=== PATIENT | female | born 1995 | race Hispanic/Latino ===

== ENCOUNTER 2024-02-08 14:48 | Inpatient (IN) | payer MEDICAID, OTHER ==
[2024-02-08] MEDS ORDERED: hydrALAZINE 20 MG/ML VIAL SLOW IVP PRN ×3 (15:24→22:18)
[2024-02-08 15:59] LABS: #Basophils 0.01 10x3/uL (0.0-0.2); #Eosinphils 0.01 10x3/uL (0.0-0.5); #Monocytes 0.63 10x3/uL (0.0-1.1); #Neutrophils 9.08 10x3/uL (1.5-8.4); %Basophils 0.1 % (0.0-2.0); %Eosinophils 0.1 % (0.0-6.0); %Lymphocytes 11.5 % (18.0-47.0); %Monocytes 5.7 % (0.0-10.0); %Neutrophils 82.1 % (40.0-75.0); Hematocrit 26.3 % (34.9-44.5); Hemoglobin 9.2 g/dL (12.0-15.5); Mean Corpuscular Hemoglobin 29.8 pg (27.0-33.0); Mean Corpuscular Volume 85.1 fL (81.6-98.3); Mean Platelet Volume 9.7 fL (7.4-10.4); Platelet Count 314 10x3/uL (150-450); RBC Distribution Width 12.7 % (11.5-14.5); Red Blood Cell (RBC) Count 3.09 10x6/uL (3.90-5.03); White Blood Cell (WBC) Count 11.1 10x3/uL (3.5-10.5)
[2024-02-08 16:17] LABS: ALT (SGPT) Less than 7 U/L (8-55); AST (SGOT) 14 U/L (5-34); Albumin 2.7 g/dL (3.5-5.0); Alkaline Phosphatase 163 U/L (40-110); Anion Gap 12 mmol/L (10-20); BUN (Urea Nitrogen) 9 mg/dL (7.0-18.7); Bilirubin, Total 0.3 mg/dL (0.2-1.2); Calc. Creatinine Clearance 0 mL/min (70-130); Carbon Dioxide 21 mmol/L (22-29); Chloride 106 mmol/L (98-107); Estimated GFR 124; Globulin 3.7 g/dL (2.4-3.5); Glucose 96 mg/dL (70-105); Potassium 4.2 mmol/L (3.5-5.1); Protein, Total 6.4 g/dL (6.0-8.3); Sodium 135 mmol/L (136-145)
[2024-02-08] MEDS ORDERED: Lactated Ringer's 1,000 ML IV SCH (16:30)
[2024-02-08] MEDS: fentaNYL 50 mcg/mL 1 mL Vial SLOW IVP ONE (16:30)
[2024-02-08 17:05] VITALS: BMI 19.1
[2024-02-08] MEDS: Terbutaline Sulfate 1 MG/ML VIAL ONE (17:40)
[2024-02-08] MEDS ORDERED: fentaNYL 50 mcg/mL 1 mL Vial SLOW IVP PRN ×2 (18:20→20:29)
[2024-02-08] MEDS ORDERED: Tranexamic Acid 1,000 MG/10 ML VIAL IVP PRN (18:20)
[2024-02-08] MEDS ORDERED: Misoprostol 200 MCG TAB PR PRN (18:20)
[2024-02-08] MEDS ORDERED: Methylergonovine 0.2 MG/ML VIAL IM PRN (18:20)
[2024-02-08] MEDS ORDERED: Acetaminophen 500 MG TAB PO PRN (18:20)
[2024-02-08] MEDS ORDERED: Ondansetron PF 4 MG/2 ML Vial IVP PRN ×4 (18:20→22:18)
[2024-02-08] MEDS ORDERED: Diphenoxylate HCl/Atropine Tablet PO PRN (18:20)
[2024-02-08] MEDS ORDERED: Carboprost 250 MCG/ML AMP IM PRN (18:20)
[2024-02-08] MEDS ORDERED: Oxytocin 30 units/NS 500 ML 500 ML IV SCH ×2 (18:30→22:18)
[2024-02-08] MEDS ORDERED: Terbutaline Sulfate 1 MG/ML VIAL SC SCH (18:30)
[2024-02-08] MEDS: Betamet Acet/Betamet Na Ph 30 MG/5 ML VIAL IM SCH (18:45)
[2024-02-08 18:59] LABS: Syphilis Antibody Nonreactive (Nonreactive); Syphilis Antibody Index 0.05 S/CO (<1.00 Non-Reactive)
[2024-02-08 19:01] LABS: HBsAg Index 0.19 S/CO (0-0.99); Hep B Surf Ag - L&D Non-Reactive S/CO (NonReactive)
[2024-02-08] MEDS ORDERED: Famotidine/PF 20 mg/2ml Vial SLOW IVP PRN (19:09)
[2024-02-08] MEDS ORDERED: Bicitra 30 ML UDCUP PO PRN (19:09)
[2024-02-08] MEDS: Lactated Ringer's 1,000 ML IV SCH (19:22)
[2024-02-08] MEDS: CEFAZOLIN 2 GM in Sodium Chloride 0.9% 100 ML IVPB SCH (19:22)
[2024-02-08 19:23] LABS: Bilirubin Neg (Negative); Blood, Urine 50 (Negative); Clarity Clear (Clear); Glucose, Urine (Dipstick) 50 mg/dL (Negative); Ketone, Urine 150 mg/dL (Negative); Leukocyte 25 (Negative); Nitrite Negative (Negative); Protein, Urine (Dipstick) Negative (Neg-Trace); Urobilinogen Normal mg/dL (Less than 2)
[2024-02-08 19:32] LABS: Bacteria/HPF 1+ HPF (None Seen); CAUTI Indications for Culture Pregnancy; RBC/HPF 0-3 HPF (0-3); Squamous Epithelial 0-3 HPF (0-3)
[2024-02-08 19:35] LABS: Urine Culture Reflex Yes Yes
[2024-02-08] MEDS ORDERED: Ketorolac Tromethamine 30 MG (1 mL) VIAL IVP PRN (20:29)
[2024-02-08] MEDS ORDERED: Meperidine HCl/PF 25 MG (1 mL) VIAL SLOW IVP PRN (20:29)
[2024-02-08] MEDS ORDERED: Promethazine HCl 25 MG/ML VIAL IM PRN ×2 (20:29→22:18)
[2024-02-08] MEDS ORDERED: Naloxone HCl 0.4 mg/ml Vial IV PRN (20:29)
[2024-02-08] MEDS ORDERED: Moisturizing Cream (Eucerin) 113 GM JAR TOP PRN (20:29)
[2024-02-08] MEDS ORDERED: Morphine 4 MG/ML VIAL SLOW IVP PRN (20:29)
[2024-02-08] MEDS ORDERED: Naloxone HCl 0.4 mg/ml Vial IVP PRN (20:29)
[2024-02-08] MEDS ORDERED: Ketorolac Tromethamine 30 MG (1 mL) VIAL IVP SCH (20:30)
[2024-02-08] MEDS ORDERED: Communication Order-Pharmacy FS SCH (20:30)
[2024-02-08] MEDS: Oxytocin 10 UNITS/ML VIAL ONE (21:05)
[2024-02-08] MEDS: PHENYLEPHRINE-NS 100 MCG/ML 10 ML SYRINGE ONE (21:05)
[2024-02-08] MEDS: Ondansetron PF 4 MG/2 ML Vial ONE (21:05)
[2024-02-08] MEDS: Morphine PF 10 MG/10 ML VIAL ONE (21:05)
[2024-02-08] MEDS: Dexamethasone 4 mg/ml Vial ONE (21:05)
[2024-02-08] MEDS: Ketorolac Tromethamine 30 MG (1 mL) VIAL IVP SCH (22:00)
[2024-02-08] MEDS ORDERED: Bisacodyl 10 MG SUPP PR PRN (22:18)
[2024-02-08] MEDS ORDERED: Lanolin Ointment 7 GM TUBE TOP PRN (22:18)
[2024-02-08 23:04] LABS: Influenza A by NAA Not Detected (NotDetected); Influenza B by NAA Not Detected (NotDetected); RSV by NAA Not Detected (NotDetected); SARS-CoV-2 NAA Rapid Test Not Detected (NotDetected)
[2024-02-09 03:22] LABS: Hematocrit 29.4 % (34.9-44.5); Hemoglobin 10.1 g/dL (12.0-15.5); Mean Corpuscular HGB CONC 34.4 g/dL (32.0-36.0); Mean Corpuscular Hemoglobin 29.1 pg (27.0-33.0); Mean Corpuscular Volume 84.7 fL (81.6-98.3); Mean Platelet Volume 9.5 fL (7.4-10.4); Platelet Count 286 10x3/uL (150-450); RBC Distribution Width 12.7 % (11.5-14.5); Red Blood Cell (RBC) Count 3.47 10x6/uL (3.90-5.03); White Blood Cell (WBC) Count 17.7 10x3/uL (3.5-10.5)
[2024-02-09] MEDS: Docusate 100 MG CAP PO SCH ×2 (03:23→08:43)
[2024-02-09] MEDS: Ferrous Sulfate 325 MG TAB PO SCH ×2 (03:23→10:25)
[2024-02-09] MEDS: Ketorolac Tromethamine 30 MG (1 mL) VIAL IVP SCH (04:04)
[2024-02-09] MEDS: diphenhydrAMINE 50 MG/ML VIAL IVP PRN (06:11)
[2024-02-09] MEDS ORDERED: fentaNYL 50 mcg/mL 1 mL Vial SLOW IVP PRN (08:30)
[2024-02-09] MEDS: Naloxone HCl 0.4 mg/ml Vial IVP PRN (08:42)
[2024-02-09] MEDS: Prenatal Vitamin 1 TAB PO SCH (08:43)
[2024-02-09] MEDS: HYDROcodone/Acetaminophen 5/325 mg Tablet PO PRN (18:24)
[2024-02-09] MEDS: diphenhydrAMINE 25 MG CAP PO PRN (18:25)
[2024-02-09] MEDS: Simethicone Chewable 80 MG TAB PO PRN (19:49)
[2024-02-09] MEDS: Ibuprofen 800 MG TAB PO SCH (21:10)
[2024-02-10] MEDS: HYDROcodone/Acetaminophen 5/325 mg Tablet PO PRN (09:04)
[2024-02-11 07:42] VITALS: BP 90/52; TEMP 97.8
[2024-02-11] MEDS: Boostrix 0.5 ML (Tdap) VIAL (>/=7 yrs of age) IM ONE (07:56)
== END 2024-02-11 16:40 | disposition home or self-care (01) | DRG 786 ==
LOC: CSHLD/OP 14:48 → CSHLD 18:20 → OBSVTOIN 19:25 → CSHPP 22:40
PROVIDERS: ADMIT Family Medicine; ATTEND Family Medicine
PROC: 10D00Z1 Extraction of Products of Conception, Low, Open Approach (ICD-10-PCS; principal; 2024-02-08)
DX: O24.420 Gestational diabetes mellitus in childbirth, diet controlled (principal); O60.14X0 Preterm labor third trimester with preterm delivery third trimester, not applicable or unspecified; O75.2 Pyrexia during labor, not elsewhere classified; Z3A.35 35 weeks gestation of pregnancy; Z37.0 Single live birth; O34.211 Maternal care for low transverse scar from previous cesarean delivery; Z79.899 Other long term (current) drug therapy; O76 Abnormality in fetal heart rate and rhythm complicating labor and delivery
CPT/HCPCS: 0241U; 36415; 51702; 76819; 80053; 81001; 85025; 85027; 86780; 86850; 86900; 86901; 87086; 87340; 88307; 96372; 96374; 96375; 99284; 99285; G0378; J0702; J1100; J1200; J1885; J2274; J2310; J2405; J2590; J3010; J3105; J3490; J7120